=== PATIENT | male | born 1945 | race Two or more races ===

== ENCOUNTER 2018-06-08 23:52 | Emergency (ER) | payer OTHER, SELFPAY ==
[~2018-06-08] VITALS: Ht 188 cm; Wt 97.5 kg
[2018-06-08] MEDS ORDERED: LEXAPRO20 MG ORAL (23:59)
[2018-06-08] MEDS ORDERED: ABILIFY2 MG ORAL (23:59)
[2018-06-08] MEDS ORDERED: NORVASC5 MG ORAL (23:59)
[2018-06-08] MEDS ORDERED: HYDROCHLOROTH12.5 M2 ORAL (23:59)
[2018-06-08] MEDS ORDERED: ADDERAL20 MG ORAL (23:59)
[2018-06-09] VITALS: BP 171/94
[2018-06-09] MEDS ORDERED: ELIQUIS5 MG PO (00:14)
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
[2018-06-09 00:50] VITALS: BP 171/94
== END 2018-06-09 00:53 | disposition home or self-care (01) ==
LOC: EMR 06-09 00:53
DX: I10 Essential (primary) hypertension (principal); Z02.89 Encounter for other administrative examinations; F32.9 Major depressive disorder, single episode, unspecified
CPT/HCPCS: 99283